=== PATIENT | female | born 1990 | race Caucasian/White ===

== ENCOUNTER 2017-06-22 01:44 | Inpatient (IN) | payer OTHER ==
[~2017-06-22] VITALS: Ht 175.3 cm; Wt 84.5 kg
[~2017-06-22 01:44] MED LIST: DOCO100C PO; PREN1TAB60 PO
[2017-06-22] MEDS ORDERED: IBUPROFEN 600 MG TABLET ONE (02:30)
[2017-06-22] MEDS ORDERED: OXYTOCIN 30U/ 0.9% NaCL 500ML 500 ML IV SCH ×2 (02:32)
[2017-06-22] MEDS: IBUPROFEN 600 MG TABLET PO PRN ×4 (02:35→22:26)
[2017-06-22] MEDS ORDERED: OXYTOCIN 30U/ 0.9% NaCL 500ML 500 ML IV ONE (02:37)
[2017-06-22] MEDS ORDERED: OXYcodone/APAP 5/325MG TABLET PO PRN ×2 (03:00)
[2017-06-22] MEDS ORDERED: OXYTOCIN 10 UNITS/ML, 1ML IM PRN (03:00)
[2017-06-22] MEDS ORDERED: ACETAMINOPHEN 325 MG TABLET PO PRN ×2 (03:00)
[2017-06-22] MEDS ORDERED: MISOPROSTOL 200 MCG TABLET PR PRN ×2 (03:00)
[2017-06-22] MEDS ORDERED: FENTANYL PF 100 MCG/2ML IVPush PRN (03:00)
[2017-06-22] MEDS ORDERED: DOCUSATE 100 MG CAPSULE PO PRN (03:00)
[2017-06-22] MEDS ORDERED: CARBOPROST TROMETHAMINE 250 MCG/ML, 1ML IM PRN (03:00)
[2017-06-22] MEDS ORDERED: FENTANYL PF 100 MCG/2ML IV PRN (03:00)
[2017-06-22] MEDS ORDERED: ONDANSETRON 2MG/ML, 2ML IV PRN ×2 (03:00)
[2017-06-22] MEDS ORDERED: OXYTOCIN 10 UNITS/ML, 1ML IM ONE (03:00)
[2017-06-22] MEDS ORDERED: METHYLERGONOVINE 0.2 MG/ML IM PRN (03:00)
[2017-06-22 03:06] LABS: MEAN CORPUSCULAR HGB CONC 34.3 g/dL (32.4-35.8); MEAN CORPUSCULAR VOLUME 90.3 fL (80-100); MEAN PLATELET VOLUME 12.1 fL (7.4-10.4); PLATELET COUNT 167 x10^3/uL (130-400); RED BLOOD COUNT 4.23 x10^6/uL (3.82-5.3)
[2017-06-22] MEDS ORDERED: OXYcodone/APAP 5/325MG TABLET ONE (03:11)
[2017-06-22] MEDS: OXYcodone/APAP 5/325MG TABLET PO PRN ×4 (03:13→22:27)
[2017-06-22 03:32] LABS: BASOPHILS # (AUTO) 0.03 x10^3/uL (0-0.1); BASOPHILS % (AUTO) 0 % (0-1); EOSINOPHILS # (AUTO) 0.02 x10^3/uL (0-0.4); EOSINOPHILS % (AUTO) 0 % (1-7); LYMPHOCYTES # (AUTO) 0.83 x10^3/uL (1-3.4); LYMPHOCYTES % (AUTO) 5 % (22-44); MD SCAN; MONOCYTES # (AUTO) 0.43 x10^3/uL (0.2-0.8); MONOCYTES % (AUTO) 2 % (2-9); NEUTROPHILS # (AUTO) 16.81 x10^3/uL (1.8-6.8); NEUTROPHILS % (AUTO) 93 % (42-75)
[2017-06-22 08:16] VITALS: BP 114/81
[2017-06-22] MEDS: PRENATAL VIT/IRON/FA 1 EACH TABLET PO SCH (09:00)
[2017-06-22] MEDS ORDERED: PRENATAL VIT/IRON/FA 1 EACH TABLET PO SCH (09:00)
[2017-06-22 11:36] LABS: BASOPHILS # (AUTO) 0.05 x10^3/uL (0-0.1); BASOPHILS % (AUTO) 0 % (0-1); EOSINOPHILS # (AUTO) 0.02 x10^3/uL (0-0.4); EOSINOPHILS % (AUTO) 0 % (1-7); LYMPHOCYTES # (AUTO) 2.15 x10^3/uL (1-3.4); LYMPHOCYTES % (AUTO) 13 % (22-44); MD NO; MEAN CORPUSCULAR HEMOGLOBIN 31.4 pg (27.0-34.8); MEAN CORPUSCULAR HGB CONC 34.7 g/dL (32.4-35.8); MEAN CORPUSCULAR VOLUME 90.4 fL (80-100); MEAN PLATELET VOLUME 11.9 fL (7.4-10.4); MONOCYTES # (AUTO) 0.72 x10^3/uL (0.2-0.8); MONOCYTES % (AUTO) 4 % (2-9); NEUTROPHILS # (AUTO) 13.69 x10^3/uL (1.8-6.8); NEUTROPHILS % (AUTO) 82 % (42-75); PLATELET COUNT 177 x10^3/uL (130-400); RED BLOOD COUNT 3.89 x10^6/uL (3.82-5.3)
[2017-06-22 12:07] VITALS: BP 122/87
[2017-06-22 15:50] VITALS: BP 131/86
[2017-06-22 20:00] VITALS: BP 125/82
[2017-06-22] MEDS: DOCUSATE 100 MG CAPSULE PO PRN (22:27)
[2017-06-23 01:00] VITALS: BP 102/72
[2017-06-23] MEDS: OXYcodone/APAP 5/325MG TABLET PO PRN (04:39)
[2017-06-23] MEDS: IBUPROFEN 600 MG TABLET PO PRN ×2 (04:39→18:30)
[2017-06-23] MEDS: DOCUSATE 100 MG CAPSULE PO PRN (09:40)
[2017-06-23] MEDS: PRENATAL VIT/IRON/FA 1 EACH TABLET PO SCH (09:41)
[2017-06-23] MEDS ORDERED: IBUP-1222 PO (11:35)
[2017-06-23] MEDS ORDERED: OXYC-302 PO (11:36)
[2017-06-23] MEDS ORDERED: SENN-1 PO (11:37)
[2017-06-23 19:40] VITALS: BP 110/74
[2017-06-24] MEDS: IBUPROFEN 600 MG TABLET PO PRN ×2 (02:50→11:25)
[2017-06-24] MEDS: OXYcodone/APAP 5/325MG TABLET PO PRN ×2 (02:50→11:25)
[2017-06-24 08:00] VITALS: BP 117/75
[2017-06-24] MEDS: DOCUSATE 100 MG CAPSULE PO PRN (08:00)
[2017-06-24] MEDS: PRENATAL VIT/IRON/FA 1 EACH TABLET PO SCH (08:00)
== END 2017-06-24 13:00 | disposition home or self-care (01) | DRG 775 ==
LOC: LDOP 01:44 → LDIP 01:51 → 2NW 04:35
PROVIDERS: ADMIT Obstetrics & Gynecology; ATTEND Obstetrics & Gynecology
PROC: 10E0XZZ Delivery of Products of Conception, External Approach (ICD-10-PCS; principal; 2017-06-22)
PROC: 0HQ9XZZ Repair Perineum Skin, External Approach (ICD-10-PCS; 2017-06-22)
DX: O34.219 Maternal care for unspecified type scar from previous cesarean delivery (principal); O62.3 Precipitate labor; O99.824 Streptococcus B carrier state complicating childbirth; O69.81X0 Labor and delivery complicated by cord around neck, without compression, not applicable or unspecified; S30.814A Abrasion of vagina and vulva, initial encounter; Z3A.37 37 weeks gestation of pregnancy; Z37.0 Single live birth
CPT/HCPCS: 36415; 85025; 86850; 86900; J2590